=== PATIENT | female | born 1965 | race Caucasian/White ===

== ENCOUNTER → 2020-04-03 09:33 | Outpatient (CLI) | payer MEDICARE, OTHER, SELFPAY ==
[2020-04-06 06:52] LABS: COVID19 Sendout Not Detected (Not Detect)
== END ==
PROVIDERS: Visit Provider Physician Assistant
DX: Z11.59 Encounter for screening for other viral diseases (principal)
CPT/HCPCS: 87635

== ENCOUNTER → 2020-04-03 09:44 | Outpatient (CLI) | payer MEDICARE, OTHER, SELFPAY | PROVIDERS: PCP Physician Assistant; Referring Provider Physician Assistant; Visit Provider Orthopaedic Surgery Orthopaedic Surgery of the Spine | DX: Z01.818 Encounter for other preprocedural examination (principal); Z11.59 Encounter for screening for other viral diseases | CPT/HCPCS: 87635; 93005 ==

== ENCOUNTER 2020-04-07 16:51 | Observation (INO) | payer MEDICARE, OTHER, SELFPAY ==
[2020-03-23 10:54] VITALS: BMI 27.3
[2020-04-02 13:00] VITALS: BMI 26.4
[2020-04-06] VITALS (13 sets, daily range): BP systolic 132–157; BP diastolic 83–106; PULSE 96–105; RESP 10–22; TEMP 36.3–36.9; O2SAT 95–100; BMI 26.4
--- NOTE | 2020-04-06 | DI.RAD.S_ITS ---
PROCEDURE: XR LUMBAR SPINE 2-3V INDICATIONS: L45 TLIF TECHNIQUE: Fluoroscopic images were obtained during an operative procedure and submitted for interpretation following the completion of the procedure. COMPARISON: [facility], , MR LUMBAR SPINE WITHOUT CONTRAST, 07/25/2019, 18:27. [facility], CR, XR LUMBAR SPINE WITH OLBIQUES PLUS FLEXION EXTENSION, 08/22/2019, 12:56. FINDINGS: These fluoroscopic images were performed for intraoperative localization. On these images, postoperative hardware has been placed at the L4-L5 level. Please correlate with intraoperative findings. IMPRESSION: Normal intraoperative examination. Dictated by: Dipesh Alvarenga M.D. on 04/06/2020 at 10:04 Approved by: Dipesh Alvarenga M.D. on 04/06/2020 at 10:05
[2020-04-06] MEDS: LACTATED RINGERS 1,000 ML 42 ML IV ×2 (07:04→10:57)
--- NOTE | 2020-04-06 07:49 | PM.PREOP ---
Pre-operative Note COVID-19 COVID-19 status: Negative Result date/Date tested (Pos, Neg/Pending): 04/04/20 Interval Note History & Physical reviewed/Exam performed by Physician: Yes Changes to H&P: No
[2020-04-06] MEDS: CEFAZOLIN 2 GM/100 ML FROZ.PIGGY IV (07:51)
--- NOTE | 2020-04-06 08:38 | SUR.OPER ---
Prone on spine table, head in foam head support, padded chest and pelvic supports, gel pad at knees, lower legs supported by pillows; nipples, genitalia and toes free of pressure, arms secured on foam padded arm boards at <90 degrees abduction. Tape over blanket at thigh secured to table.
[2020-04-06] MEDS: BUPIVACAINE 0.25% W/ EPI 30 ML VIAL INJ (08:43)
[2020-04-06] MEDS: BUPIVACAINE LIPOSOME 266 MG/20 ML VIAL INJ (08:43)
--- NOTE | 2020-04-06 10:39 | PM.OP.1 ---
Operative Date/Time/Diagnoses Date of procedure: 04/06/20 Time of procedure: 08:09 Pre-op diagnosis: 1. L4-5 Spondylolisthesis 2. L4-5 spinal stenosis 3. Neurogenic claudication Post-op diagnosis: same Procedure & Clinicians Procedure: 1. L4-5 Postero-lateral and posterior interbody fusion 2. L4-5 interbody cage placement. 3. L4-5 decompressive laminectomy with bilateral facetecomies 4. L4-5 Posterior non-segmental instrumentation 5. Reynolds of bone marrow from iliac crest 6. Utilization of microsurgical technique and operating microscope Same procedure as scheduled: Yes Indications: Patient has been having chronic back pain and worsening lumbar radiculopathy and neurogenic claudication. Patient failed multiple conservative management with worsening pain weakness and numbness in her lower extremity. Patient has been having difficulty performing activity of daily living. After discussing risks benefits of treatment options, patient elected proceed with surgery. Surgeon: Miguel Candelario Air Support Operations Operator: Lesly Farah Click Yes if Unassisted: No Anesthesia Type: General Operative Notes Closure Type: primary Specimen(s): none sent Prosthetic devices, grafts, tissues, transplants, or devices: Globus revolve screws, Rise cage Estimated Blood Loss (mL): 50 Blood products transfused: none Procedure in detail: Patient was seen in the preoperative area. Risks and benefits of the surgery was discussed with the patient. Informed consent was obtained from the patient and placed in the chart. Surgical site was marked. Patient was taken to the operative room. General anesthesia was administered. Prophylactic antibiotic was given to the patient less than 30 min before the incision was made. Patient was placed into a prone position on the Anders table. Patient's back was then prepped and draped in the sterile fashion. Time-out was performed at this time. Using AP and lateral C-arm imaging the interval between L4-5 was identified and marked on patient's back. A 2 inch incision 2 in from midline was made on the left side first. The fascia was incised in line with skin incision. Globus MARS retractors was placed inside the incision and docked onto the L4 lamina. Using microsurgical technique and operating microscope, a L4 laminectomy and L4-5 facetectomy was performed using a Kerrison rongeur. There was a large facet cyst at L4-5 facet which was removed during the process of facetectomy. Patient was found have severe central and neural foraminal stenosis which was fully decompressed after the laminectomy and facetectomy was completed. The disc space at L4-5 was identified. And a total diskectomy was performed at L4-5 level. The endplates were decorticated using a rasp and shaver. The total diskectomy and decortication was performed at L4-5 level in order to to accomplish a L4-5 fusion. The local bone from the laminectomy and facetectomy was saved for local bone grafting. After the total diskectomy and decortication was completed, Trifecta bone graft material was combined with local bone that was harvested earlier. At this time, a separate skin is incision was made over the iliac crest. A Jamshidi needle was inserted into the iliac crest through a separate skin incision. 5 cc of bone marrow aspiration was obtained through the separate skin incision using a Jamshidi needle from the iliac crest. The bone marrow aspiration was combined with local bone and the Trifecta bone grafting material. The bone grafting material was placed into the L4-5 interbody space along with a expandable cage. The cage was expanded to its maximum height using the torque limiting screwdriver. At this time a mirror image incision was made on the right side. The fascia was incised in line with the skin incision. Globus MARS retractor was inserted and docked onto the L4-5 posterolateral gutter. Using the power drill, posterior-lateral decortication was performed at L4-5 level until bleeding cortical bone was identified. The remaining bone grafting material was placed into the L4-5 posterior lateral gutter he order to accomplish posterolateral fusion at the L4-5 level. Using the double C-arm technique, pedicle screws were placed into the L4-5 pedicles bilaterally. This was done by placing the Jamshidi needle into the pedicles, then placing the guidewires over the Jamshidi needle, and finally placing the cannulated screws over the guidewires bilaterally. After the pedicle screws were placed, 2 titanium rods was locked into the heads of the pedicle screws using locking caps and torque limiting screwdriver. After all the hardware was placed, and confirmed with AP and lateral C-arm imaging, the wound was then irrigated with sterile normal saline and packed with Ray-Dorene gauze for 3 min to accomplish hemostasis. After the gauze was removed the deep fascia was closed with #1 Vicryl suture. The subcutaneous layer was closed with 2-0 Vicryl. The skin was closed with skin sarita. Patient tolerated the procedure well. There were no complications. Complications: none Post-operative Condition: stable Disposition: PACU Plan for aftercare: Admit to inpatient hospital
--- NOTE | 2020-04-06 11:39 | SUR.PHASEI ---
late entry - Arrived to pacu sleeping, resp unlabored, skin warm and dry. VSS similar to admission. 1056 aroused spontaneously, oriented, denied pain/nausea. ice chips given. Repositioned for comfort. see flow charts. Report called to RACHAEL Varner.
[2020-04-06] MEDS: SODIUM CHLORIDE 0.9% 1,000 ML 100 ML IV ×2 (11:40→21:59)
--- NOTE | 2020-04-06 11:41 | SUR.PHASEI ---
1119 to room 219, bed down and locked, call light within reach. Pt oriented/drowsy and appropriate. Clothing and wheelchair taken to the room. Dressing remains CDI, continues to deny pain/nausea. SCDs on; VSS. No questions/concerns from pt or staff.
[2020-04-06] MEDS: OXYCODONE IR 5 MG TABLET 10 MG PO ×4 (11:42→23:11)
--- NOTE | 2020-04-06 11:49 | PC.NURSE ---
Day shift: Pt on unit at approx 1130 from PACU. She reports being tired and she also reported pain in back 01/30. Medicated for pain per SEP at approx 1145. She is tolerating Ice water. She did not want a cracker. Has wanted the HOB adjusted several times. Oriented to room and call light. BP elevated and per AUTOMATIC STACKER aware. Will continue to monitor BP. On cont. O2 monitor w/ sat of 100% RA. Tolerating SCD's. Call light in reach. Dressing over op-jesus on her lower back is CDI.
[2020-04-06] MEDS: HYDROMORPHONE 0.5 MG INJ 0.2 MG IV (12:22)
[2020-04-06] MEDS: hydrOXYzine pamoate 25 MG CAPSULE PO (12:29)
[2020-04-06] MEDS: GABAPENTIN 300 MG CAPSULE PO ×2 (14:04→20:09)
[2020-04-06] MEDS: BACLOFEN 10 MG TABLET 20 MG PO ×2 (14:04→20:09)
[2020-04-06] MEDS: NORTRIPTYLINE HCL 25 MG CAPSULE PO ×2 (14:06→20:09)
--- NOTE | 2020-04-06 15:02 | PT.IIE ---
Current Diagnoses Spondylolisthesis, lumbar region (04/06/20) Spinal stenosis, lumbar region with neurogenic claudication (04/06/20) Surgery Performed Operation Date: 04/06/20 07:45 Actual Procedures p L4-5 TLIF - Miguel Candelario MD Surgical History (Last Updated 04/02/20 @ 13:19 by Clarita Tabor, RN) History of hysterectomy (Acute) Medical History (Last Updated 04/02/20 @ 13:22 by Clarita Tabor RN) Anxiety (Acute) Depression (Acute) HTN (hypertension) (Acute) Memory problem (Acute) Multiple sclerosis (Acute 1988) Neuropathy (Acute) Physical Therapy Inpatient Evaluation/Re-Eval M1 PT/OT-IP Prior Functional Status Start: 04/06/20 13:39 Freq: NEEDED Status: Active Protocol: Document 04/06/20 14:32 HH (Rec: 04/06/20 15:02 [id number]) Medical Review Prior Functional Status Medical History Reviewed Yes Diet/Fluid Consistency Regular Communication able to make needs known. Pt and stated pt has difficulty with short term memory d/t MS. Mobility and Gait 4WW at all times. Uses transport w/c sometimes for long distance. Activities of Daily Living and IADL's independent for ADLs with 4WW. She is able to drive but can help for doctors appt sometimes. Social History Household Members spouse,children Living Arrangements House Number of Floors (Floors) Two Floors Number of Stairs To Enter/Railing? with ramp entrance pt stays on mainfloor with bathroom access. Home Environment Standard Height Toilet,Walk in Shower Home Equipment Four Wheel Walker,Power Wheelchair/Scooter,Hand Held Shower,Grab Bars In Shower Employment Status Unemployed Additional Social History Comment Pt lives with his Heri and a 19 yo son in [facility]. stated him and his son will be able to assist as needed. M2 PT-IP Current Condition Start: 04/06/20 13:39 Freq: NEEDED Status: Active Protocol: Document 04/06/20 14:32 HH (Rec: 04/06/20 15:02 [id number]) Physical Therapy Current Condition Current Condition Evaluation Date 04/06/20 Treatment Diagnosis L4-L5 TLIF, difficulty in walking Onset Date 04/06/20 Precautions Lumbar Precautions Log Roll,No Twisting,Limit Bending,Lifting Restriction of 10 lbs,Gait Belt above Incisional Area Weight Bearing Status Weight Bearing Status Weight Bear as Tolerated M3 PT-IP Subjective Start: 04/06/20 13:39 Freq: NEEDED Status: Active Protocol: Document 04/06/20 14:32 (Rec: 04/06/20 15:02 [id number]) Subjective Physical Therapy Visit Type Type Initial Evaluation Visit Start Time 14:12 Visit Stop Time 14:36 Total Visit Minutes 24 Notes Heri at bedside. 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 Patient Goals to return home with family Therapy Pain Assessment Pain When Pain Assessed During Mobility Pain Present Pain Present Pain Reported Location Back Intensity 4 Scale Used Numeric (0 - 10) Description Aching Pain Behaviors Facial Grimacing Pain Management Techniques Timing of Activity with Medications M4 PT-IP Mobility and Gait Start: 04/06/20 13:39 Freq: NEEDED Status: Active Protocol: Document 04/06/20 14:32 (Rec: 04/06/20 15:02 [id number]) PT-Bed Mobility Assessment Rolling Type of Rolling Log Rolling,Roll to Right Level of Assist Minimal Assistance,1 Person Assistance Supine to Sit Supine to Sit Moderate Assistance,1 Person Assistance,Head of Bed Elevated Scooting Scooting to Edge of Bed Contact Guard Assistance PT-Transfer Assessment Sit to and From Stand Sit to and from Stand Minimal Assistance,Use of Upper Extremities Equipment Transfer Assistive Device Gait Belt,Front Wheeled Walker Transfers Transfer Destination Bed,Chair Transfer Technique Stand Step Pivot Transfer Ability Level of Assist Moderate Assistance,1 Person Assistance,Use of Upper Extremities Comments Mobility Comments Pt was in bed upon PT arrival. AxO x 3 but needed assistance from to answer questions about home situation d/t her poor short term memory from MS. Educated pt regarding postop precautions. BP in supine = 133/80 and she agreed to mobilize with PT. She reports pain at surgical site and some radiating pain L lateral hip. She initially has difficulty rolling to R with min A needed, followed by mod A x 1p from SL to sit. Pt is somewhat fridgety and needed 1 step command for instruction. She was able to scoot to EOB after but reports slight dizziness. BP at 158/ 111. Pt then stood up with min A and she stood for about 20 seconds then requested to sit down d/t weakness. She then stood up after with better performance with CGA/ min A. Pt then did side stepping to R side but needed mod A on walker management and step management since pt was somewhat anxious. Pt then slowly descend to chair with chair armrests and mod A. Positioned pt into reclined position for comfort. BP at 137/81. pain at 4/10 . Call light placed within reach. Pt was not able to recall precautions after and post op bronchue was given. Gait Assessment Comments Gait Comments did not assess d/t weakness. Stair Climbing Assessment Comments Stair Climbing Comments pt has a ramp at home PT-Balance Assessment Sitting Balance and Reactions Static Sitting Balance Ability Normal Dynamic Sitting Balance Ability Good Standing Balance and Reactions Static Standing Balance Ability Good Dynamic Standing Balance Ability Fair Device Used FWW M5 PT-IP Objective Assessments Start: 04/06/20 13:39 Freq: NEEDED Status: Active Protocol: Document 04/06/20 14:32 (Rec: 04/06/20 15:02 [id number]) Orientation Orientation/Cognition Level of Alertness Alert Orientation Name,Age,Birthday,Month,Date, Year,Day of Week,Place, Situation Language Function Ability No Deficits Noted Safety Awareness Decreased Safety Awareness Memory Description Short Term Impaired Gross Range of Motion Upper Extremity ROM Assessment Within Functional Limits Lower Extremity ROM Assessment Within Functional Limits Strength Upper Extremity Strength Assessment Left Impaired Shoulder 4-/5 Elbow 4-/5 Wrist 4-/5 Hand 4-/5 Lower Extremity Strength Hip 4-/5 Knee 4-/5 Sensation Assessment Sensation Gross Sensation WNL Light Touch Intact Proprioception (Position) Intact M6 PT-IP Treatment Start: 04/06/20 13:39 Freq: NEEDED Status: Active Protocol: Document 04/06/20 14:32 (Rec: 04/06/20 15:02 [id number]) Physical Therapy Treatment Exercises Exercises Ankle Pumps,Gluteal Sets Education Education Provided Precautions,Weight Bearing Status,Post-Op Packet,Safety M7 PT-IP Assessment and Plan Start: 04/06/20 13:39 Freq: NEEDED Status: Active Protocol: Document 04/06/20 14:32 (Rec: 04/06/20 15:02 [id number]) PT Summary Assessment and Plan Potential Rehabilitation Potential Good Status of Condition at Evaluation Evolving Summary Impairments Pain,ROM,Strength,Balance,Bed Mobility,Transfers,Gait, Activity Tolerance Assessment Summary This is a low complexity evalution for this 54 yo female s/p L4-L5 TLIF this morning by . Pt stated she has MS and uses 4WW at baseline, along with poor short term memory. Upon assessment, pt appears to be quite nervous and anxious who was fridgety during mobility. She needed 1 step command for instruction with min to mod A for bed to chair transfer. She was not able to recall post op precautions but fortunately her Heri was there for the whole session. Expect pt to close to baseline soon and be d/c home with and son assistance as needed or possible home health (depends on progress) once she is medically stable Goals Bed Mobility Goal Contact Guard Assistance Transfer Goal Contact Guard Assistance,Front Wheeled Walker,Four Wheeled Walker Gait Goal Contact Guard Assistance,Front Wheel Walker,Four Wheel Walker Gait Distance 100 Other Goals FWW/ 4WW for mobility Days to Meet Goals 3 Frequency of Treatment Frequency Of Treatment Twice a Day Treatment Plan Physical Therapy Treatment Plan Bed Mobility Training,Transfer Training,Gait Training, Therapeutic Exercise,Balance Retraining,Post Op Education, Discharge Planning,Hot or Cold Pack,Neuromuscular Re-ed Other Recommendations and Next Treatment check vitals Focus review precautions, log roll FWW/ 4WW for mobility Recommendations To Nursing Amount of Assist Needed 1 Person Assist Discharge Recommendations PT Discharge Recommendations Home with Assistance,Home Health Equipment Needed for Home Before FWW if pt not safe for 4WW Discharge Transportation Needs at Discharge Private Vehicle
[2020-04-06] MEDS: CEFAZOLIN 1 GM/50 ML FROZ.PIGGY IV ×2 (16:01→23:47)
[2020-04-06] MEDS: DOCUSATE 100 MG CAPSULE PO (20:09)
[2020-04-06] MEDS: SENNOSIDES 8.6 MG TABLET 17.2 MG PO (20:09)
[2020-04-07] MEDS: OXYCODONE IR 5 MG TABLET 10 MG PO ×5 (02:53→21:45)
[2020-04-07 03:00] VITALS: BP 138/75; PULSE 104; RESP 18; TEMP 37.1; O2SAT 99
--- NOTE | 2020-04-07 07:27 | PM.PNPO.1 ---
Subjective Subjective Date Patient Seen: 04/07/20 Time Patient Seen: 07:27 Interval history: POD #1 s/p TLIF with Dr. Candelario. Her pain has been well controlled with Oxycodone and Vistaril. She does have MS and this may contribute to a slower recovery. She has not mobilized with PT yet. She is voiding without difficulty. Exam Vital Signs (past 8 hours): - 04/07/20 03:00 Temperature 98.8 F Pulse Rate 104 H Respiratory Rate 18 Blood Pressure 138/75 Pulse Oximetry 99 Oxygen Delivery Method Room Air Oxygen Flow Rate 0 Narrative Exam Narrative: Patient lying in bed in NAD. She is alert and oriented X3. Calves are soft, compressible, and nontender bilaterally. She is able to dorsiflex and plantarflex. SILT in BLE. DP pulses symmetrical. Assessment & Plan Post-op Postoperative Procedures: Procedures Operation Date: 04/06/20 07:45 Actual Procedures Side Surgeon p L4-5 TLIF Miguel Candelario MD Patient will mobilize with PT today. No excessive bending, lifting, or twisting. Continue current pain control. Patient will mobilize with PT. If they are slow to mobilize they will discharge in next 2-3 days. Quality VTE Deep Vein Thrombosis/Pulmonary Embolism Present on Admission: No
[2020-04-07 08:03] VITALS: BP 126/75; PULSE 91; RESP 18; TEMP 36.2; O2SAT 99
[2020-04-07] MEDS: NORTRIPTYLINE HCL 25 MG CAPSULE PO ×3 (08:56→21:46)
[2020-04-07] MEDS: PRAMIPEXOLE 0.125 MG TABLET PO (08:56)
[2020-04-07] MEDS: BACLOFEN 10 MG TABLET 20 MG PO ×3 (09:03→21:49)
[2020-04-07] MEDS: lisinopriL 20 MG TABLET PO (09:03)
[2020-04-07] MEDS: SERTRALINE 50 MG TABLET 150 MG PO (09:03)
[2020-04-07] MEDS: GABAPENTIN 300 MG CAPSULE PO ×3 (09:04→21:46)
[2020-04-07] MEDS: DOCUSATE 100 MG CAPSULE PO ×2 (09:04→21:46)
--- NOTE | 2020-04-07 09:56 | PT.IPTN ---
Current Diagnoses Spondylolisthesis, lumbar region (04/06/20) Spinal stenosis, lumbar region with neurogenic claudication (04/06/20) Surgery Performed Operation Date: 04/06/20 07:45 Actual Procedures p L4-5 TLIF - Miguel Candelario MD Physical Therapy Treatment Note M2 PT-IP Current Condition Start: 04/06/20 13:39 Freq: NEEDED Status: Active Protocol: Document 04/06/20 14:32 HH (Rec: 04/06/20 15:02 HH [id number]) Physical Therapy Current Condition Current Condition Evaluation Date 04/06/20 Treatment Diagnosis L4-L5 TLIF, difficulty in walking Onset Date 04/06/20 Precautions Lumbar Precautions Log Roll,No Twisting,Limit Bending,Lifting Restriction of 10 lbs,Gait Belt above Incisional Area Weight Bearing Status Weight Bearing Status Weight Bear as Tolerated M3 PT-IP Subjective Start: 04/06/20 13:39 Freq: NEEDED Status: Active Protocol: Document 04/07/20 09:56 CLB (Rec: 04/07/20 11:13 CLB [id number]) Subjective Physical Therapy Visit Type Type Treatment Note Visit Start Time 09:56 Visit Stop Time 10:19 Total Visit Minutes 23 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 Therapy Pain Assessment Pain When Pain Assessed During Mobility Pain Present Pain Present Pain Reported Location Back Intensity 5 Scale Used Numeric (0 - 10) Pain Behaviors Facial Grimacing Pain Management Techniques Timing of Activity with Medications M4 PT-IP Mobility and Gait Start: 04/06/20 13:39 Freq: NEEDED Status: Active Protocol: Document 04/07/20 09:56 CLB (Rec: 04/07/20 11:13 CLB [id number]) PT-Transfer Assessment Sit to and From Stand Sit to and from Stand Minimal Assistance,Use of Upper Extremities Equipment Transfer Assistive Device Gait Belt,Front Wheeled Walker ,4 Wheeled Walker Transfers Transfer Destination Chair Transfer Technique Stand Step Pivot Transfer Ability Level of Assist Minimal Assistance,Use of Upper Extremities Comments Mobility Comments Pt in chair upon arrival. Pt stood with cues for hand placement and requiring Min A, once pt was in standing with bilateral hands of walker pt required CGA for standing balance. Pt ambulated ~10ft with 4WW with increased pain, 4WW was replaced with FWW with decreased pain during use. Pt required cues to stay inside walker and cues for hayden as pt ambulates too quickly and lets walker get to far ahead of her. Pt returned to chair due to LE weakness and fatigue requiring cues to reach back for arms of chair to slow descent and decrease pain. Pt then stood requiring Min A and CGA for standing balance as RN removed and place new bandage on low back incision. Pt returned to sitting and was left in chair reclined with all needs within reach. Pt to be here this afternoon for CG training. Pt will need FWW and d/c. Gait Assessment Gait Gait Assistance Required: Contact Guard Assist,1 Person Assist Distance (Feet) 25 Able to Maintain Weight Bearing Status Yes During Gait Assistive Devices Assistive Device Gait Belt,Front Wheeled Walker ,4 Wheeled Walker Orthotic/Prosthetic Devices or Brace: No Gait Deviations General Gait Pattern Antalgic,Decreased Stride Length,Decreased Feet Clearance,Flexed Trunk,Narrow Based Gait Factors Limiting Gait Function Factors Limiting Gait Function Decreased Activity Tolerance, Decreased Strength,Difficulty Following Directions,Limited Range of Motion,Pain,Poor Balance,Poor Safety Awareness Comments Gait Comments Pt requiring CGA during ambulation with max cuing for walker management. Pt requiring cues for posture and hayden. Stair Climbing Assessment Comments Stair Climbing Comments pt has a ramp at home M5 PT-IP Objective Assessments Start: 04/06/20 13:39 Freq: NEEDED Status: Active Protocol: Document 04/06/20 14:32 (Rec: 04/06/20 15:02 [id number]) Orientation Orientation/Cognition Level of Alertness Alert Orientation Name,Age,Birthday,Month,Date, Year,Day of Week,Place, Situation Language Function Ability No Deficits Noted Safety Awareness Decreased Safety Awareness Memory Description Short Term Impaired Gross Range of Motion Upper Extremity ROM Assessment Within Functional Limits Lower Extremity ROM Assessment Within Functional Limits Strength Upper Extremity Strength Assessment Left Impaired Shoulder 4-/5 Elbow 4-/5 Wrist 4-/5 Hand 4-/5 Lower Extremity Strength Hip 4-/5 Knee 4-/5 Sensation Assessment Sensation Gross Sensation WNL Light Touch Intact Proprioception (Position) Intact M6 PT-IP Treatment Start: 04/06/20 13:39 Freq: NEEDED Status: Active Protocol: Document 04/06/20 14:32 (Rec: 04/06/20 15:02 [id number]) Physical Therapy Treatment Exercises Exercises Ankle Pumps,Gluteal Sets Education Education Provided Precautions,Weight Bearing Status,Post-Op Packet,Safety M7 PT-IP Assessment and Plan Start: 04/06/20 13:39 Freq: NEEDED Status: Active Protocol: Document 04/07/20 09:56 CLB (Rec: 04/07/20 11:13 CLB [id number]) PT Summary Assessment and Plan Summary Impairments Pain,ROM,Strength,Balance,Bed Mobility,Transfers,Gait, Activity Tolerance Assessment Summary Pt has decreased activity tolerance and was able to ambulate ~25ft with CGA and max cues for walker management . Pt requiring Min A for sit- stand. Pt's will be in this afternoon for CG training. Pt will require FWW at d/c. Goals Bed Mobility Goal Contact Guard Assistance Transfer Goal Contact Guard Assistance,Front Wheeled Walker,Four Wheeled Walker Gait Goal Contact Guard Assistance,Front Wheel Walker,Four Wheel Walker Gait Distance 100 Other Goals FWW/ 4WW for mobility Days to Meet Goals 3 Frequency of Treatment Frequency Of Treatment Twice a Day Treatment Plan Physical Therapy Treatment Plan Bed Mobility Training,Transfer Training,Gait Training, Therapeutic Exercise,Balance Retraining,Post Op Education, Discharge Planning,Hot or Cold Pack,Neuromuscular Re-ed Other Recommendations and Next Treatment precautions, bed mobility, CG Focus training with . Recommendations To Nursing Amount of Assist Needed 1 Person Assist Discharge Recommendations PT Discharge Recommendations Home with Assistance,Home Health Equipment Needed for Home Before FWW Discharge Transportation Needs at Discharge Private Vehicle
[2020-04-07 10:56] VITALS: BP 106/68; PULSE 108; RESP 16; TEMP 36.5; O2SAT 100
--- NOTE | 2020-04-07 11:24 | CM.DANOTE ---
DCP/Assessment: Reviewed chart. Patient is a 54yr old female admitted [facility] on 04-06-[address] Candelario. PCP is JOSSELIN Bassett. Primary payor is 1)Medicare 2)[facility]. Met with patient explained CM/SW role. Patient reports that she hopes to d/c home later today. Patient reports that she has needed support and DME. P: Home when stable. DELFIN Colin Discharge Planning/Care Management CM Discharge Assessment Start: 04/07/20 11:22 Freq: Status: Active Protocol: Document 04/07/20 11:23 KJS (Rec: 04/07/20 11:24 KJS [id number]) Discharge Planning Assessment Assigned Warehouse Delivery Manager DELFIN Colin Contact Information Heri Blank (spouse) [phone] Advance Directives? No History Provided By Patient,Medical Record Prior Living Arrangements House Household Members spouse,children Type of transporation used prior to Drives own vehicle admit Independent with ADL's Yes Is patient alert and oriented? Yes Caregiver for Another No DME Already Rented / Owned FWW / Walker Barriers to Discharge No Discharge Plan Home Transportation Arrangement Family to provide transport when stable. Whiteboard Updated in Patient Room with Yes name and ext. # of Warehouse Delivery Manager Review Status In Process Next Review Type Continued Stay Review Pre-Anesthesia Assessment Start: 03/23/20 10:54 Freq: Status: Complete Protocol: Document 03/23/20 10:54 CAB (Rec: 03/23/20 12:10 CAB [id number]) Pre-Anesthesia Assessment PAC Comment Phone call was disconnected and three attempts to call patient back were unsuccessful . Message x 2 left. Patient Information Reviewed Via Phone Assessment Assessment Completed With Patient Comment COVID screen not identified, no pre-op labs available Primary Care Provider Jesi Davis Seen Specialist in Last 12 Months Yes Specialist Seen Orthopedist Primary Language Sami Wage Conciliator Required No Height 154.94 cm Weight 65.771 kg Body Mass Index (BMI) 27.3 Patient is completely paralyzed or No completely immobile Mental Status Oriented to own ability Comment Hx of MS Patient No Lactating No Have you had any close contact with Unknown someone diagnosed with COVID-19? Marital Status Lives With spouse Document 04/02/20 13:00 CAB (Rec: 04/02/20 13:00 CAB [id number]) Pre-Anesthesia Assessment PAC Comment Multiple attempts to get ahold of pt for two scheduled PAC phone assessments. Pt appears to be easily confused and unable to provide information without asking . She states she has memory issues related to MS Patient Information Reviewed Via Phone Assessment Assessment Completed With Patient Comment COVID screen not identified, no pre-op labs available Primary Care Provider Jesi Davis Seen Specialist in Last 12 Months Yes Specialist Seen Orthopedist Primary Language Sami Wage Conciliator Required No Height 154.94 cm Weight 63.503 kg Body Mass Index (BMI) 26.4 Hearing Ability Normal Visual Assist Glasses Dentition Type Teeth, Natural Present Barriers to Learning Memory Hx Anesthesia Reactions No Hx Family Anesthesia Reaction No Hx Malignant Hyperthermia No Hx Blood Transfusions No Anesthesia Review Requested No Time Clock Mechanic No alcohol intake former Alcohol Intake Frequency Other: Stopped years ago Smoking Status Former smoker Tobacco type cigarettes how long ago did patient quit smoking Quit 1989 Substance Use Type marijuana Comment Advised not to smoke marijuana 24 hours prior to surgery Pain Present Pain Reported Musculoskeletal Symptoms Abnormal Gait,Back Pain, Difficulty Walking,Numbness History of Falling (Recent or History of Yes ) Patient is completely paralyzed or No completely immobile Prosthesis or Orthotic Device Front Wheel Walker Gait/Transferring Impaired Mental Status Oriented to own ability Comment Hx of MS Is patient on oxygen? No Does patient have RENNER/SOB No Hx Sleep Apnea No Currently Taking a Beta Sarmad No Hx Chest Pain No Hx SOB No Hx Syncope or Dizziness No Anti-Coagulant Therapy No Has a Embedded Systems Developer No Cardiac Testing No Hx Pacemaker/ICD No Pacemaker Rep Required? No Diet Type At Home Regular dysphagia No Urinary Catheter Present No Hx Urinary Self Catheterization No Diabetes No Patient No Lactating No Hx Drug Resistant Organism No Presence of External or Internal Medical No Devices Have you had any close contact with No someone diagnosed with COVID-19? Marital Status Lives With spouse,children Prior Living Arrangements House Number of Floors (Floors) 3 or More Floors Support System Child/Children,Spouse Does the Patient Have Assistance After Yes Surgery Patient Discharge Plan Description Return Home Comment Pt not advised on length of stay per surgeon Feels Safe in Current Environment Yes Been Physically Hurt or Threatened By a No Person in Current Environment Do you have thoughts of harming yourself None or others? Are you currently considering suicide? No Do you have a plan to hurt yourself or No Plan others? Do You Have Any Spiritual Beliefs That No May Affect Your HC Choices? Do You Have Any Cultural Practices That No May Affect Your HC Choices? Comment Anabaptism Who Can We Speak to About Patient's Care Family, friends Identifying Code for Release of Patient Declines to issue Information Health Care Proxy/Next of Kin Anselmo () Health Care Proxy Emergency Contact Name Anselmo () Emergency Contact Advance Directives? No Power of Seat Scooper Machine No PAC Instructions Durable medical equipment, Medications to take/avoid, Nasal antibiotic,No ETOH/ petroleum product on skin DOS, NPO,Post-op transportation, Sturdy shoes/comfortable clothes,Do not bring valuables and remove jewelry
--- NOTE | 2020-04-07 11:51 | OT.IP.EVAL ---
Current Diagnoses Spondylolisthesis, lumbar region (04/06/20) Spinal stenosis, lumbar region with neurogenic claudication (04/06/20) Surgery Performed Operation Date: 04/06/20 07:45 Actual Procedures p L4-5 TLIF - Miguel Candelario MD Past Medical History (Last Updated 04/02/20 @ 13:22 by Clarita Tabor, RN) Anxiety (Acute) Depression (Acute) HTN (hypertension) (Acute) Memory problem (Acute) Multiple sclerosis (Acute 1987) Neuropathy (Acute) Surgical History (Last Updated 04/02/20 @ 13:19 by Clarita Tabor, RN) History of hysterectomy (Acute) Occupational Therapy Inpatient Evaluation/Re-Eval M1 PT/OT-IP Prior Functional Status Start: 04/07/20 13:41 Freq: NEEDED Status: Active Protocol: Document 04/07/20 11:11 [facility] (Rec: 04/07/20 14:00 [facility] [id number]) Medical Review Prior Functional Status Medical History Reviewed Yes Diet/Fluid Consistency Regular Communication able to make needs known. Pt and stated pt has difficulty with short term memory d/t MS. Mobility and Gait 4WW at all times. Uses transport w/c sometimes for long distance. Activities of Daily Living and IADL's independent for ADLs with 4WW. She is able to drive but can help for doctors appt sometimes. Social History Household Members spouse,children Living Arrangements House Number of Floors (Floors) Two Floors Number of Stairs To Enter/Railing? with ramp entrance pt stays on the main floor with bathroom access. Home Environment Standard Height Toilet,Walk in Shower Home Equipment Four Wheel Walker,Power Wheelchair/Scooter,Hand Held Shower,Grab Bars In Shower Additional Social History Comment Pt lives with his Heri and a 19 yo son in [place]. stated him and his son will be able to assist as needed. M2 OT-IP Current Condition Start: 04/07/20 13:41 Freq: Status: Active Protocol: Document 04/07/20 11:11 [facility] (Rec: 04/07/20 14:00 [facility] [id number]) Occupational Therapy Current Condition Current Condition Evaluation Date 04/07/20 Treatment Diagnosis Spinal Stenosis s/p L4-5 TLIF Diagnosis Onset Date 04/06/20 Post Operative Precautions Lumbar Precautions Log Roll,No Twisting,Limit Bending,Lifting Restriction of 10 lbs,Gait Belt above Incisional Area M3 OT- IP Subjective and Pain Start: 04/07/20 13:41 Freq: Status: Active Protocol: Document 04/07/20 11:11 [facility] (Rec: 04/07/20 14:00 [facility] [id number]) OT- Subjective Occupational Therapy Visit Type Type Initial Evaluation Visit Start Time 11:11 Visit Stop Time 11:51 Total Visit Minutes 40 Occupational Therapy Visit Comments Patient Comments Pt agreed tp get up for OT eval. Patient/Caregiver Goals TO go home. OT Pain Assessment Pain When Pain Assessed At Rest Pain Present Pain Present Denied Pain M4 OT- IP ADL's Start: 04/07/20 13:41 Freq: Status: Active Protocol: Document 04/07/20 11:11 [facility] (Rec: 04/07/20 14:00 [facility] [id number]) OT TFT-Xoyz-Ugaeizy Comments OT Self-Feeding Comments Not at meal time. OT ADL-Grooming Comments OT Grooming Comments Pt states already put her dentures in. Educated if rinsing her mouth to best spit into a cup to best follow her back precautions. OT ADL-Dressing General Eval Lower Body Dressing Ability Minimal Assistance Areas Needing Assistance Underpants/Brief Comments OT Dressing Comments Assist to help get brief over her feet. Pt a bit forgetful and trying to bend over to get her brief on and needing vc to stop. Showed pt public speaking coach but at this time pt's to assist as will have to assist pt at all times due to her decreased safety awareness due to decreased short term memory. OT ADL-Toileting General Evaluation Toileting Ability Standby Assistance Comments OT Toileting Comments Educated best for pt to stand and wipe and have there to assist if needed. OT ADL-Bathing Comments OT Bathing Comments Not performed. M5 OT- IP IADL's Start: 04/07/20 13:41 Freq: Status: Active Protocol: Document 04/07/20 11:11 [facility] (Rec: 04/07/20 14:00 [facility] [id number]) OT-Instrumental Activities of Daily Living Home Safety Awareness Ability to Problem Solve Emergency Unable to Problem Solve Situations Medication Management Medication Management Caregiver Administers Money Management Money Management Caregiver Provides Assistance Meal Preparation Meal Preparation Caregiver Provides Assist Wood Carver Wood Carver Caregiver Provides Assist M6 OT- IP Functional Cognition Start: 04/07/20 13:41 Freq: Status: Active Protocol: Document 04/07/20 11:11 [facility] (Rec: 04/07/20 14:00 [facility] [id number]) Cognitive Factors Limiting Selfcare Function Cognitive Ability Level of Alertness Alert Patient Orientation Name,Place,Situation Attention Span Ability Capable of Focused Attention, Capable of Sustained Attention Ability to Follow Commands Able to Follow One Step Commands with Increased Time, Able to Follow One Step Commands with Repetition Memory Description Short Term Impaired Safety Awareness Decreased Recall of Precautions,Decreased Ability to Apply Precautions, Underestimates Need for Assistance Problem Solving Ability Needs Assist to Identify Solutions Cognitive Comments Cognitive Assessment Comments Pt needing step by step commands to follow back precautions, have the FWW in front of her, and slow down. Pt is impulsive and not remembering her back precautions. Pt's educated to remind her often. M7 OT- IP Mobility and Balance Start: 04/07/20 13:41 Freq: Status: Active Protocol: Document 04/07/20 11:11 [facility] (Rec: 04/07/20 14:00 [facility] [id number]) OT- Bed Mobility Assessment Supine to Sit Supine to Sit Assist Moderate Assistance Sit to Supine Sit to Supine Assist Moderate Assistance OT-Transfer Assessment Sit to and From Stand Sit to and from Stand Moderate Assistance Transfers Transfer Ability Minimal Assistance,Moderate Assistance Technique Transfer Destination Bed,Chair,Toilet Devices Transfer Assistive Devices Gait Belt,Front Wheeled Walker Comments Mobility Comments Able to train her for bed mobility and will continue to benefit from more practice. Pt's able to sulema gait belt and assist to stand from [place]EPH[place] to MOD A to FWW. Pt 's needing cues for proper body mechanics and hand placement for gait belt when assisting the pt. OT- Balance Assessment Sitting Balance and Reactions Static Sitting Balance Ability Normal Dynamic Sitting Balance Ability Good Standing Balance and Reactions Static Standing Balance Ability Fair M9 OT- IP Assessment and Plan Start: 04/07/20 13:41 Freq: Status: Active Protocol: Document 04/07/20 11:11 [facility] (Rec: 04/07/20 14:00 [facility] [id number]) OT Summary Assessment and Plan Potential Rehabilitation Potential Good Analytic Complexity at Evaluation Low Summary OT Impairments Balance,Functional Cognition, Functional Mobility,Dressing, Toileting,Bathing,Toilet Transfers,Shower Transfers, Activity Tolerance Progress Towards Goals Progressing Toward Goals Assessment Summary Pt low complexity and main barriers are decreased safety awareness and not needing one person assist for all mobility and self care needs. Pt's present and initiated caregiver training for bed mobility , transfers, and ADl needs. Pt and to benefit from more traiing tomorrow. Pt would benefit from a BSC at home. Goals Grooming Goal Independent Dressing Goal Independent Toileting Goal Independent Bathing Goal Independent Toilet Transfer Goal Independent Shower Transfer Goal Independent Patient/Caregiver Education Goal Demonstrate Post-Op Precautions,Caregiver Independent Assisting Patient Days to Meet Goals 10 Frequency of Treatment Frequency Of Treatment Once a Day Treatment Plan OT Treatment Plan ADL Training,Functional Cognition Training,Functional Mobility,Patient/Family Education,Discharge Planning Other Treatment Recommendations and Next caregiver training Treatment Focus Discharge Recommendations OT Discharge Recommendations Home with 24/7 Assist Other Discharge Recommendations Assist during waking hours. Home Equipment Needs BSC Transportation Needs at Discharge Private Vehicle
--- NOTE | 2020-04-07 13:47 | PT.IPTN ---
Current Diagnoses Spondylolisthesis, lumbar region (04/06/20) Spinal stenosis, lumbar region with neurogenic claudication (04/06/20) Surgery Performed Operation Date: 04/06/20 07:45 Actual Procedures p L4-5 TLIF - Miguel Candelario MD Physical Therapy Treatment Note M2 PT-IP Current Condition Start: 04/06/20 13:39 Freq: NEEDED Status: Active Protocol: Document 04/06/20 14:32 HH (Rec: 04/06/20 15:02 HH [id number]) Physical Therapy Current Condition Current Condition Evaluation Date 04/06/20 Treatment Diagnosis L4-L5 TLIF, difficulty in walking Onset Date 04/06/20 Precautions Lumbar Precautions Log Roll,No Twisting,Limit Bending,Lifting Restriction of 10 lbs,Gait Belt above Incisional Area Weight Bearing Status Weight Bearing Status Weight Bear as Tolerated M3 PT-IP Subjective Start: 04/06/20 13:39 Freq: NEEDED Status: Active Protocol: Document 04/07/20 13:17 [facility]B (Rec: 04/07/20 14:13 CLB [id number]) Subjective Physical Therapy Visit Type Type Treatment Note Visit Start Time 13:27 Visit Stop Time 13:47 Total Visit Minutes 20 Notes present Number of [employer]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 Therapy Pain Assessment Pain When Pain Assessed During Mobility Pain Present Pain Present Pain Reported Location Back Intensity 3 Scale Used Numeric (0 - 10) Pain Behaviors Facial Grimacing,Guarding, Holding Area,Restlessness, Wincing Pain Management Techniques Timing of Activity with Medications M4 PT-IP Mobility and Gait Start: 04/06/20 13:39 Freq: NEEDED Status: Active Protocol: Document 04/07/20 13:17 [facility]B (Rec: 04/07/20 14:13 CLB [id number]) PT-Bed Mobility Assessment Rolling Type of Rolling Log Rolling,Roll to Right Supine to Sit Supine to Sit Minimal Assistance,1 Person Assistance Sit to Supine Sit to Supine Moderate Assistance,1 Person Assistance Scooting Scooting to Edge of Bed Contact Guard Assistance PT-Transfer Assessment Sit to and From Stand Sit to and from Stand Minimal Assistance,Use of Upper Extremities Equipment Transfer Assistive Device Gait Belt,Front Wheeled Walker Orthotic/Prosthetic Devices or Brace: No Transfers Transfer Destination Bed Transfer Technique Stand Step Pivot Transfer Ability Level of Assist Minimal Assistance,Use of Upper Extremities Comments Mobility Comments Pt in bed and agreeable to get out of bed to ambulate. Pt requiring step by step instructions and cues for sequencing LR and Min A supine to sit. Pt was able to scoot to EOB CGA. Pt stood requiring Min A. Pt ambulated ~25ft CGA with max cues for posture and staying inside walker. Pt requiring cues for sequencing stand pivot with walker management until safely in front of bed. Pt sat CGA then required Mod A for reverse LR and assist with LE's onto bed and cues for keeping back from twisting. Pt with increased pain in supine was left in bed in sidelying on right side with pillow between legs and one behind pt. present and all needs within reach. Gait Assessment Gait Gait Assistance Required: Contact Guard Assist,1 Person Assist Distance (Feet) 25 Able to Maintain Weight Bearing Status Yes During Gait Assistive Devices Assistive Device Gait Belt,Front Wheeled Walker Gait Deviations General Gait Pattern Antalgic,Decreased Stride Length,Decreased Feet Clearance,Flexed Trunk,Narrow Based Gait Factors Limiting Gait Function Factors Limiting Gait Function Decreased Activity Tolerance, Decreased Strength,Difficulty Following Directions,Limited Range of Motion,Pain,Poor Balance,Poor Safety Awareness Comments Gait Comments Due to pain in right buttocks and upper thigh pt unable to increase gait distance. Stair Climbing Assessment Comments Stair Climbing Comments pt has a ramp at home M5 PT-IP Objective Assessments Start: 04/06/20 13:39 Freq: NEEDED Status: Active Protocol: Document 04/06/20 14:32 (Rec: 04/06/20 15:02 [id number]) Orientation Orientation/Cognition Level of Alertness Alert Orientation Name,Age,Birthday,Month,Date, Year,Day of Week,Place, Situation Language Function Ability No Deficits Noted Safety Awareness Decreased Safety Awareness Memory Description Short Term Impaired Gross Range of Motion Upper Extremity ROM Assessment Within Functional Limits Lower Extremity ROM Assessment Within Functional Limits Strength Upper Extremity Strength Assessment Left Impaired Shoulder 4-/5 Elbow 4-/5 Wrist 4-/5 Hand 4-/5 Lower Extremity Strength Hip 4-/5 Knee 4-/5 Sensation Assessment Sensation Gross Sensation WNL Light Touch Intact Proprioception (Position) Intact M6 PT-IP Treatment Start: 04/06/20 13:39 Freq: NEEDED Status: Active Protocol: Document 04/06/20 14:32 HH (Rec: 04/06/20 15:02 HH [id number]) Physical Therapy Treatment Exercises Exercises Ankle Pumps,Gluteal Sets Education Education Provided Precautions,Weight Bearing Status,Post-Op Packet,Safety M7 PT-IP Assessment and Plan Start: 04/06/20 13:39 Freq: NEEDED Status: Active Protocol: Document 04/07/20 13:17 CLB (Rec: 04/07/20 14:13 CLB [id number]) PT Summary Assessment and Plan Summary Impairments Pain,ROM,Strength,Balance,Bed Mobility,Transfers,Gait, Activity Tolerance Progress Towards Goals Slow Progress due to Pain,Slow Progress due to Activity Tolerance Assessment Summary Pt unable to increase gait distance due to pain. Pt requiring Min-Mod A for bed mobilty and Min A for sit- stand. Pt requires verbal cues to stay inside walker and proper walker management during gait and CGA. Pt and will benefit from another session for CG training. Pt may need FWW at d /c. Goals Bed Mobility Goal Contact Guard Assistance Transfer Goal Contact Guard Assistance,Front Wheeled Walker,Four Wheeled Walker Gait Goal Contact Guard Assistance,Front Wheel Walker,Four Wheel Walker Gait Distance 100 Other Goals FWW/ 4WW for mobility Days to Meet Goals 3 Frequency of Treatment Frequency Of Treatment Twice a Day Treatment Plan Physical Therapy Treatment Plan Bed Mobility Training,Transfer Training,Gait Training, Therapeutic Exercise,Balance Retraining,Post Op Education, Discharge Planning,Hot or Cold Pack,Neuromuscular Re-ed Other Recommendations and Next Treatment precautions, bed mobility, CG Focus training with . Recommendations To Nursing Amount of Assist Needed 1 Person Assist Discharge Recommendations PT Discharge Recommendations Home with Assistance,Home Health Equipment Needed for Home Before FWW Discharge Transportation Needs at Discharge Private Vehicle
--- NOTE | 2020-04-07 14:14 | PT.IPTN ---
Current Diagnoses Spondylolisthesis, lumbar region (04/06/20) Spinal stenosis, lumbar region with neurogenic claudication (04/06/20) Surgery Performed Operation Date: 04/06/20 07:45 Actual Procedures p L4-5 TLIF - Miguel Candelario MD Physical Therapy Treatment Note M2 PT-IP Current Condition Start: 04/06/20 13:39 Freq: NEEDED Status: Active Protocol: Document 04/06/20 14:32 HH (Rec: 04/06/20 15:02 HH [id number]) Physical Therapy Current Condition Current Condition Evaluation Date 04/06/20 Treatment Diagnosis L4-L5 TLIF, difficulty in walking Onset Date 04/06/20 Precautions Lumbar Precautions Log Roll,No Twisting,Limit Bending,Lifting Restriction of 10 lbs,Gait Belt above Incisional Area Weight Bearing Status Weight Bearing Status Weight Bear as Tolerated M3 PT-IP Subjective Start: 04/06/20 13:39 Freq: NEEDED Status: Active Protocol: Document 04/07/20 13:17 CLB (Rec: 04/07/20 14:13 CLB [id number]) Subjective Physical Therapy Visit Type Type Treatment Note Visit Start Time 13:27 Visit Stop Time 13:47 Total Visit Minutes 20 Notes present Number of PARTNER MANAGER Visits 2 Physical Therapy Visit Comments Patient Comments Pt agreeable to participate with therapy. Therapy Pain Assessment Pain When Pain Assessed During Mobility Pain Present Pain Present Pain Reported Location Back Intensity 3 Scale Used Numeric (0 - 10) Pain Behaviors Facial Grimacing,Guarding, Holding Area,Restlessness, Wincing Pain Management Techniques Timing of Activity with Medications M4 PT-IP Mobility and Gait Start: 04/06/20 13:39 Freq: NEEDED Status: Active Protocol: Document 04/07/20 13:17 CLB (Rec: 04/07/20 14:13 CLB [id number]) PT-Bed Mobility Assessment Rolling Type of Rolling Log Rolling,Roll to Right Supine to Sit Supine to Sit Minimal Assistance,1 Person Assistance Sit to Supine Sit to Supine Moderate Assistance,1 Person Assistance Scooting Scooting to Edge of Bed Contact Guard Assistance PT-Transfer Assessment Sit to and From Stand Sit to and from Stand Minimal Assistance,Use of Upper Extremities Equipment Transfer Assistive Device Gait Belt,Front Wheeled Walker Orthotic/Prosthetic Devices or Brace: No Transfers Transfer Destination Bed Transfer Technique Stand Step Pivot Transfer Ability Level of Assist Minimal Assistance,Use of Upper Extremities Comments Mobility Comments Pt in bed and agreeable to get out of bed to ambulate. Pt requiring step by step instructions and cues for sequencing LR and Min A supine to sit. Pt was able to scoot to EOB CGA. Pt stood requiring Min A. Pt ambulated ~25ft CGA with max cues for posture and staying inside walker. Pt requiring cues for sequencing stand pivot with walker management until safely in front of bed. Pt sat CGA then required Mod A for reverse LR and assist with LE's onto bed and cues for keeping back from twisting. Pt with increased pain in supine was left in bed in sidelying on right side with pillow between legs and one behind pt. present and all needs within reach. Gait Assessment Gait Gait Assistance Required: Contact Guard Assist,1 Person Assist Distance (Feet) 25 Able to Maintain Weight Bearing Status Yes During Gait Assistive Devices Assistive Device Gait Belt,Front Wheeled Walker Gait Deviations General Gait Pattern Antalgic,Decreased Stride Length,Decreased Feet Clearance,Flexed Trunk,Narrow Based Gait Factors Limiting Gait Function Factors Limiting Gait Function Decreased Activity Tolerance, Decreased Strength,Difficulty Following Directions,Limited Range of Motion,Pain,Poor Balance,Poor Safety Awareness Comments Gait Comments Due to pain in right buttocks and upper thigh pt unable to increase gait distance. Stair Climbing Assessment Comments Stair Climbing Comments pt has a ramp at home M5 PT-IP Objective Assessments Start: 04/06/20 13:39 Freq: NEEDED Status: Active Protocol: Document 04/06/20 14:32 (Rec: 04/06/20 15:02 [id number]) Orientation Orientation/Cognition Level of Alertness Alert Orientation Name,Age,Birthday,Month,Date, Year,Day of Week,Place, Situation Language Function Ability No Deficits Noted Safety Awareness Decreased Safety Awareness Memory Description Short Term Impaired Gross Range of Motion Upper Extremity ROM Assessment Within Functional Limits Lower Extremity ROM Assessment Within Functional Limits Strength Upper Extremity Strength Assessment Left Impaired Shoulder 4-/5 Elbow 4-/5 Wrist 4-/5 Hand 4-/5 Lower Extremity Strength Hip 4-/5 Knee 4-/5 Sensation Assessment Sensation Gross Sensation WNL Light Touch Intact Proprioception (Position) Intact M6 PT-IP Treatment Start: 04/06/20 13:39 Freq: NEEDED Status: Active Protocol: Document 04/06/20 14:32 HH (Rec: 04/06/20 15:02 HH [id number]) Physical Therapy Treatment Exercises Exercises Ankle Pumps,Gluteal Sets Education Education Provided Precautions,Weight Bearing Status,Post-Op Packet,Safety M7 PT-IP Assessment and Plan Start: 04/06/20 13:39 Freq: NEEDED Status: Active Protocol: Document 04/07/20 13:17 CLB (Rec: 04/07/20 14:13 CLB [id number]) PT Summary Assessment and Plan Summary Impairments Pain,ROM,Strength,Balance,Bed Mobility,Transfers,Gait, Activity Tolerance Progress Towards Goals Slow Progress due to Pain,Slow Progress due to Activity Tolerance Assessment Summary Pt unable to increase gait distance due to pain. Pt requiring Min-Mod A for bed mobilty and Min A for sit- stand. Pt requires verbal cues to stay inside walker and proper walker management during gait and CGA. Pt and will benefit from another session for CG training. Pt may need FWW at d /c. Goals Bed Mobility Goal Contact Guard Assistance Transfer Goal Contact Guard Assistance,Front Wheeled Walker,Four Wheeled Walker Gait Goal Contact Guard Assistance,Front Wheel Walker,Four Wheel Walker Gait Distance 100 Other Goals FWW/ 4WW for mobility Days to Meet Goals 3 Frequency of Treatment Frequency Of Treatment Twice a Day Treatment Plan Physical Therapy Treatment Plan Bed Mobility Training,Transfer Training,Gait Training, Therapeutic Exercise,Balance Retraining,Post Op Education, Discharge Planning,Hot or Cold Pack,Neuromuscular Re-ed Other Recommendations and Next Treatment precautions, bed mobility, CG Focus training with . Recommendations To Nursing Amount of Assist Needed 1 Person Assist Discharge Recommendations PT Discharge Recommendations Home with Assistance,Home Health Equipment Needed for Home Before FWW Discharge Transportation Needs at Discharge Private Vehicle
[2020-04-07 15:55] VITALS: BP 107/81; PULSE 112; RESP 18; TEMP 36.8; O2SAT 97
[2020-04-07 20:45] VITALS: BP 117/77; PULSE 111; RESP 14; TEMP 36.6; O2SAT 99
[2020-04-07] MEDS: SENNOSIDES 8.6 MG TABLET 17.2 MG PO (21:46)
--- NOTE | 2020-04-07 22:32 | PC.NURSE ---
Addendum entered by Jnoah Hardy R.N. 04/07/20 22:37: Patient cover site dressing/clean/dry/intact. Original Note: Patient pain 4-5/10, 10mg Oxycodone PRN Q3. Patient ambulating w/ in the room 1 person standby w/ FWW.
[2020-04-07 23:00] VITALS: BP 93/63; PULSE 116; RESP 16; TEMP 37.1; O2SAT 99
[2020-04-08] MEDS: OXYCODONE IR 5 MG TABLET 10 MG PO ×3 (02:36→08:39)
[2020-04-08] MEDS: hydrOXYzine pamoate 25 MG CAPSULE PO (02:37)
[2020-04-08 05:47] VITALS: BP 112/68; PULSE 68; RESP 18; TEMP 36.7; O2SAT 97
--- NOTE | 2020-04-08 07:55 | PM.DS.1 ---
History of Present Illness History of Present Illness Date Patient Seen: 04/08/20 Time Patient Seen: 07:55 Chief complaint: Translaminar Interbody Fusion/Laminotomy*OPB* Narrative: Please see HPI previously recorded in the chart. Discharge Providers Provider Date of admission: 04/07/20 16:51 Discharge Date: 04/08/20 Primary care physician: Jesi Davis PA-C Consults: 04/06/20 11:23 Consult to Occupational Therapy Evaluate & Treat Comment: Physician Instructions: Evaluate and treat Consult to Physical Therapy Evaluate & Treat Comment: Physician Instructions: Evaluate and Treat Discharge provider: Lesly Farah PA-C Summary Hospital Course Discharge Diagnosis: s/p lumbar TLIF Hospital Course: Patient has been having chronic back pain and worsening lumbar radiculopathy and neurogenic claudication. Patient failed multiple conservative management with worsening pain weakness and numbness in her lower extremity. Patient has been having difficulty performing activity of daily living. After discussing risks benefits of treatment options, patient elected proceed with surgery. Patient was taken to the operating room where she underwent an L4-[address] Candelario which she tolerated well. She has been recovering slowly but steadily due to her history of MS. She mobilized with PT about the room on POD#1 and continued to progress on POD#2. She has been voiding appropriately. Pain has been reasonably controlled with Oxycodone and Vistaril which she will be discharged with. 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 She is stable for discharge to home later today pending final PT eval. Status at Discharge Cognitive/behavioral status at discharge: oriented Functional status at discharge: uses cane/walker Overall status at discharge: patient is progressing back to baseline Exam Vital Signs (past 8 hours): - 04/08/20 05:47 Temperature 98.0 F Pulse Rate 68 Respiratory Rate 18 Blood Pressure 112/68 Pulse Oximetry 97 Oxygen Delivery Method Room Air Oxygen Flow Rate 0 Narrative Exam Narrative: 54 year old female resting in chair. AAO x3. Dressing in place over lumbar spine is CDI, small area of drainage on the left. 5/5 BLE. Calves soft bilaterally. Discharge Plan Discharge Plan Patient Disposition: Home Discharge comment: discharge to home after cleared by PT Discharge orders & Medications Prescriptions: New acetaminophen 325 mg Tablet 650 mg PO Q6HR PRN (Reason: Pain, Mild (1-3)) Qty: 20 RF: 0 docusate sodium [DOK] 100 mg Capsule 100 mg PO BID Qty: 20 RF: 0 hydroxyzine pamoate 25 mg Capsule 25 mg PO Q6-8H PRN (Reason: Nausea And Vomiting) Qty: 30 RF: 0 oxycodone 5 mg capsule 5 mg PO Q4-6H PRN (Reason: pain) Qty: 50 RF: 0 Continued lisinopril 20 mg Tablet 20 mg PO DAILY RF: 0 sertraline 100 mg Tablet 150 mg PO DAILY RF: 0 baclofen 20 mg Tablet 20 mg PO TID RF: 0 nortriptyline 25 mg Capsule 25 mg PO TID RF: 0 pramipexole 0.125 mg Tablet 0.125 mg PO DAILY RF: 0 gabapentin 300 mg Capsule 300 mg PO TID RF: 0 Aubagio 14 mg Tablet 14 mg PO DAILY RF: 0 Discontinued ibuprofen 200 mg Capsule 800 mg PO BEDTIME RF: 0 Follow up/Referrals: Jesi Davis PA-C [Primary Care Provider] - Miguel Candelario MD [Physician] - Diet/Activity/Treatments Diet: Diet as Tolerated Activity: No bending, lifting, twisting Cold/Heat Therapy: Ice packs as needed Skin/Wound/Dressing Care Report to your healthcare provider any signs of infection, such as:: chills, fever, night sweats, increased pain, unusual drainage and unusual redness Dressing: Dressing is to remain in place until your follow up. Please call the office if this becomes saturated. Visit Report/Discharge Packet Instructions: DI for Prescription Opioid Use, DI for Transforaminal Lumbar Interbody Fusion Visit Report Forms: Patient Portal/API, Stroke Signs & Symptoms Discharge Data Primary Care Provider: Jesi Davis Attending Provider: Miguel Candelario Admit Date/Time: 04/07/20 16:51 Quality VTE Deep Vein Thrombosis/Pulmonary Embolism Present on Admission: No
[2020-04-08 07:57] VITALS: BP 124/73; PULSE 112; RESP 19; TEMP 36.9; O2SAT 97
[2020-04-08] MEDS: BACLOFEN 10 MG TABLET 20 MG PO (08:36)
[2020-04-08] MEDS: SERTRALINE 50 MG TABLET 150 MG PO (08:36)
[2020-04-08 08:37] VITALS: BP 142/73; PULSE 112
[2020-04-08] MEDS: lisinopriL 20 MG TABLET PO (08:37)
[2020-04-08] MEDS: GABAPENTIN 300 MG CAPSULE PO (08:37)
[2020-04-08] MEDS: DOCUSATE 100 MG CAPSULE PO (08:38)
[2020-04-08] MEDS: PRAMIPEXOLE 0.125 MG TABLET PO (08:40)
[2020-04-08] MEDS: NORTRIPTYLINE HCL 25 MG CAPSULE PO (08:40)
--- NOTE | 2020-04-08 09:14 | OT.IP.TRT ---
Current Diagnoses Spondylolisthesis, lumbar region (04/07/20) Spinal stenosis, lumbar region with neurogenic claudication (04/07/20) Surgery Performed Operation Date: 04/06/20 07:45 Actual Procedures p L4-5 TLIF - Miguel Candelario MD Occupational Therapy Treatment Note M2 OT-IP Current Condition Start: 04/07/20 13:41 Freq: Status: Active Protocol: Document 04/07/20 11:11 [facility] (Rec: 04/07/20 14:00 [facility] [id number]) Occupational Therapy Current Condition Current Condition Evaluation Date 04/07/20 Treatment Diagnosis Spinal Stenosis s/p L4-5 TLIF Diagnosis Onset Date 04/06/20 Post Operative Precautions Lumbar Precautions Log Roll,No Twisting,Limit Bending,Lifting Restriction of 10 lbs,Gait Belt above Incisional Area M3 OT- IP Subjective and Pain Start: 04/07/20 13:41 Freq: Status: Active Protocol: Document 04/08/20 09:51 [facility] (Rec: 04/08/20 09:59 [facility] [id number]) OT- Subjective Occupational Therapy Visit Type Type Treatment Note Visit Start Time 08:48 Visit Stop Time 09:14 Total Visit Minutes 26 Occupational Therapy Visit Comments Patient Comments Pt and present for caregiver training. Patient/Caregiver Goals To go home. OT Pain Assessment Pain When Pain Assessed During Mobility Pain Present Pain Present Pain Reported Location Back Intensity 6 Scale Used Numeric (0 - 10) M4 OT- IP ADL's Start: 04/07/20 13:41 Freq: Status: Active Protocol: Document 04/08/20 09:51 [facility] (Rec: 04/08/20 09:59 [facility] [id number]) OT [id number] Comments OT Self-Feeding Comments Not at meal time. OT ADL-Grooming Comments OT Grooming Comments Pt not wanting to perform at this time. OT ADL-Dressing General Eval Lower Body Dressing Ability Minimal Assistance,Moderate Assistance Areas Needing Assistance Pants/Shorts Comments OT Dressing Comments Assist to help sulema over her feet and assist for balance while standing so pt able to pull up pants over her hips. OT ADL-Toileting General Evaluation Toileting Ability Minimal Assistance Comments OT Toileting Comments Pt's educated to assist pt with her balance as pt pulls up her clothing. OT ADL-Bathing Comments OT Bathing Comments Pt states to do at home. M5 OT- IP IADL's Start: 04/07/20 13:41 Freq: Status: Active Protocol: Document 04/07/20 11:11 [facility] (Rec: 04/07/20 14:00 [facility] [id number]) OT-Instrumental Activities of Daily Living Home Safety Awareness Ability to Problem Solve Emergency Unable to Problem Solve Situations Medication Management Medication Management Caregiver Administers Money Management Money Management Caregiver Provides Assistance Meal Preparation Meal Preparation Caregiver Provides Assist Bottom Stainer Bottom Stainer Caregiver Provides Assist M6 OT- IP Functional Cognition Start: 04/07/20 13:41 Freq: Status: Active Protocol: Document 04/08/20 09:51 [facility] (Rec: 04/08/20 09:59 [facility] [id number]) Cognitive Factors Limiting Selfcare Function Cognitive Ability Level of Alertness Alert,Confusional State Patient Orientation Name,Place,Situation Attention Span Ability Capable of Focused Attention, Capable of Sustained Attention Ability to Follow Commands Able to Follow One Step Commands with Increased Time, Able to Follow One Step Commands with Repetition Memory Description Short Term Impaired Safety Awareness Decreased Recall of Precautions,Decreased Ability to Apply Precautions, Underestimates Need for Assistance Problem Solving Ability Needs Assist to Identify Solutions Cognitive Comments Cognitive Assessment Comments Pt needing step sby step instructions from her as she is easily distracted, not remembering to pull up her brief, vc for back precautions, vc to slow down and keep the FWW in front of her. M7 OT- IP Mobility and Balance Start: 04/07/20 13:41 Freq: Status: Active Protocol: Document 04/08/20 09:51 [facility] (Rec: 04/08/20 09:59 [facility] [id number]) OT-Transfer Assessment Sit to and From Stand Sit to and from Stand Minimal Assistance Transfers Transfer Ability Standby Assistance,Contact Guard Assistance Technique Transfer Destination Chair,Toilet Devices Transfer Assistive Devices Gait Belt,Front Wheeled Walker Comments Mobility Comments Pt's educated to give pt step by step instructions during care as pt very distracted and poor safety awareness. Pt aware how to assist pt and also cued to assist to guide the FWW at times when pt is off balanced, but to always have a hand on the pt for now. OT- Balance Assessment Sitting Balance and Reactions Static Sitting Balance Ability Normal Dynamic Sitting Balance Ability Good Standing Balance and Reactions Static Standing Balance Ability Fair M9 OT- IP Assessment and Plan Start: 04/07/20 13:41 Freq: Status: Active Protocol: Document 04/08/20 09:51 [facility] (Rec: 04/08/20 09:59 [facility] [id number]) OT Summary Assessment and Plan Potential Rehabilitation Potential Good Analytic Complexity at Evaluation Low Summary OT Impairments Balance,Functional Cognition, Functional Mobility,Dressing, Toileting,Bathing,Toilet Transfers,Shower Transfers, Activity Tolerance Progress Towards Goals Progressing Toward Goals Assessment Summary Pt's has good awareness and demonstrating good safety to be able to assist pt with all ADL and functional mobility needs. Pt looking to go home today. Goals Grooming Goal Independent Dressing Goal Independent Toileting Goal Independent Bathing Goal Independent Toilet Transfer Goal Independent Shower Transfer Goal Independent Patient/Caregiver Education Goal Demonstrate Post-Op Precautions Days to Meet Goals 9 Frequency of Treatment Frequency Of Treatment Once a Day Treatment Plan OT Treatment Plan ADL Training,Functional Cognition Training,Functional Mobility,Patient/Family Education,Discharge Planning Discharge Recommendations OT Discharge Recommendations Home with 13/02 Assist Other Discharge Recommendations Assist during waking hours. Home Equipment Needs [facility] Transportation Needs at Discharge Private Vehicle
--- NOTE | 2020-04-08 09:57 | PT.IPTN ---
Current Diagnoses Spondylolisthesis, lumbar region (04/07/20) Spinal stenosis, lumbar region with neurogenic claudication (04/07/20) Surgery Performed Operation Date: 04/06/20 07:45 Actual Procedures p L4-5 TLIF - Miguel Candelario MD Physical Therapy Treatment Note M2 PT-IP Current Condition Start: 04/06/20 13:39 Freq: NEEDED Status: Discharge Protocol: Document 04/06/20 14:32 HH (Rec: 04/06/20 15:02 HH [id number]) Physical Therapy Current Condition Current Condition Evaluation Date 04/06/20 Treatment Diagnosis L4-L5 TLIF, difficulty in walking Onset Date 04/06/20 Precautions Lumbar Precautions Log Roll,No Twisting,Limit Bending,Lifting Restriction of 10 lbs,Gait Belt above Incisional Area Weight Bearing Status Weight Bearing Status Weight Bear as Tolerated M3 PT-IP Subjective Start: 04/06/20 13:39 Freq: NEEDED Status: Discharge Protocol: Document 04/08/20 09:07 SP (Rec: 04/08/20 16:25 SP [id number]) Subjective Physical Therapy Visit Type Type Treatment Note Visit Start Time 09:07 Visit Stop Time 09:57 Total Visit Minutes 50 Notes completed caregiver training and provided physical assist needed throughout treatment. Number of COMMUNITY SERVICE OFFICER COORDINATOR Visits 3 Physical Therapy Visit Comments Patient Comments Pt agreeable to participate with therapy. Therapy Pain Assessment Pain When Pain Assessed During Mobility Pain Present Pain Present Pain Reported Location Back Intensity 6 Scale Used Numeric (0 - 10) Pain Behaviors Facial Grimacing,Restlessness, Wincing Pain Management Techniques Re-positioning,Timing of Activity with Medications M4 PT-IP Mobility and Gait Start: 04/06/20 13:39 Freq: NEEDED Status: Discharge Protocol: Document 04/08/20 09:07 SP (Rec: 04/08/20 16:25 SP [id number]) PT-Bed Mobility Assessment Rolling Type of Rolling Log Rolling,Bilateral Level of Assist Minimal Assistance,1 Person Assistance Supine to Sit Supine to Sit Minimal Assistance,1 Person Assistance Sit to Supine Sit to Supine Minimal Assistance,1 Person Assistance,Bedrails Scooting Scooting to Edge of Bed Contact Guard Assistance PT-Transfer Assessment Sit to and From Stand Sit to and from Stand Minimal Assistance,Use of Upper Extremities Equipment Transfer Assistive Device Gait Belt,Front Wheeled Walker Orthotic/Prosthetic Devices or Brace: No Transfers Transfer Destination Bed,Chair,Toilet Transfer Technique Stand Step Pivot Transfer Ability Level of Assist Contact Guard Assistance, Minimal Assistance,Use of Upper Extremities Comments Mobility Comments Pt was upright in chair when arrived, present for caregiver training, just finishing with OT tx. Pt anxious during tx requiring max cuing for safety proper hand placement pushing up from chair arms and reaching back prior to sitting, upright posture and body close to 4WW initially then provided FWW due to not safe with 4WW and lack of brake mgt after education. Pt required redirection for maintaining spinal precautions throughout mobility. Sit> stand from chair Elizabeth cued hand placement not using FWW to push from. SPT using FWW chair to bed with safety cuing for proper positioning and hand placement by carryover. Sit<> R SL<> log roll to supine x5 repetitions Min A of 1 ( ) with support at upper trunk and LEs assist to complete and stay within spinal precautions. Sit<> stand from EOB and ambulated further distance into hallway approx 60 ft total with max cuing for upright posture, body close and staying with FWW, hands maintained on FWW handles and not front of FWW for safety. Pt required 2 stopped brief stand rests due to decreased activity tolerance and strength. When returned to room pt required SPT usign FWW with max cuing for body postioning and back up to sit with reaching prior to sitting on EOB before walking further to chair. Pt was ableto walk L EOB to chair and SPT with slow descent into chair provided Min A by . After 10 min rest pt required use of bathroom, assisted Elizabeth throughout, including pants mgt, able to complete pericare herself in sitting. Pt had call light and all needs in reach before left. Pt is able to return home with to assist 13/02, recommending HHPT to assist improve strength toward functional independence when medically stable. COMMUNITY SERVICE OFFICER COORDINATOR recommended FWW for home and pt and family requested we dispense prior to DC. COMMUNITY SERVICE OFFICER COORDINATOR placed order for FWW and dispensed before end of tx . Gait Assessment Gait Gait Assistance Required: Contact Guard Assist,Minimum Assistance,1 Person Assist Distance (Feet) 60 Able to Maintain Weight Bearing Status Yes During Gait Assistive Devices Assistive Device Gait Belt,Front Wheeled Walker Orthotic/Prosthetic Devices or Brace: No Gait Deviations General Gait Pattern Antalgic,Decreased Stride Length,Decreased Feet Clearance,Flexed Trunk,Narrow Based Gait,Wide Based Gait Factors Limiting Gait Function Factors Limiting Gait Function Decreased Activity Tolerance, Decreased Strength,Difficulty Following Directions,Limited Range of Motion,Pain,Poor Balance,Poor Safety Awareness Comments Gait Comments See mobility comments for details. Stair Climbing Assessment Comments Stair Climbing Comments pt has a ramp at home M5 PT-IP Objective Assessments Start: 04/06/20 13:39 Freq: NEEDED Status: Discharge Protocol: Document 04/06/20 14:32 HH (Rec: 04/06/20 15:02 HH [id number]) Orientation Orientation/Cognition Level of Alertness Alert Orientation Name,Age,Birthday,Month,Date, Year,Day of Week,Place, Situation Language Function Ability No Deficits Noted Safety Awareness Decreased Safety Awareness Memory Description Short Term Impaired Gross Range of Motion Upper Extremity ROM Assessment Within Functional Limits Lower Extremity ROM Assessment Within Functional Limits Strength Upper Extremity Strength Assessment Left Impaired Shoulder 4-/5 Elbow 4-/5 Wrist 4-/5 Hand 4-/5 Lower Extremity Strength Hip 4-/5 Knee 4-/5 Sensation Assessment Sensation Gross Sensation WNL Light Touch Intact Proprioception (Position) Intact M6 PT-IP Treatment Start: 04/06/20 13:39 Freq: NEEDED Status: Discharge Protocol: Document 04/08/20 09:07 SP (Rec: 04/08/20 16:25 SP [id number]) Physical Therapy Treatment Education Education Provided Precautions,Post-Op Packet, Safety M7 PT-IP Assessment and Plan Start: 04/06/20 13:39 Freq: NEEDED Status: Discharge Protocol: Document 04/08/20 09:07 SP (Rec: 04/08/20 16:25 SP [id number]) PT Summary Assessment and Plan Summary Impairments Pain,ROM,Strength,Balance,Bed Mobility,Transfers,Gait, Activity Tolerance Progress Towards Goals Progressing Toward Goals,Slow Progress due to Pain,Slow Progress due to Activity Tolerance Assessment Summary Pt requiring Min A for bed mobilty and Min A for sit- stand, CGA- Min during gait provided by with max cues for proper safety precautions to maintain spinal precautions. Pt requires verbal cues to stay inside walker and proper walker management during gait and CGA . Pt and completed CG training. COMMUNITY SERVICE OFFICER COORDINATOR dispensed FWW for home use due to not safe with 4WW. Goals Bed Mobility Goal Contact Guard Assistance Transfer Goal Contact Guard Assistance,Front Wheeled Walker,Four Wheeled Walker Gait Goal Contact Guard Assistance,Front Wheel Walker,Four Wheel Walker Gait Distance 100 Other Goals FWW/ 4WW for mobility Days to Meet Goals 3 Frequency of Treatment Frequency Of Treatment Twice a Day Treatment Plan Physical Therapy Treatment Plan Bed Mobility Training,Transfer Training,Gait Training, Therapeutic Exercise,Balance Retraining,Post Op Education, Discharge Planning,Hot or Cold Pack,Neuromuscular Re-ed Other Recommendations and Next Treatment precautions, bed mobility, Focus transfers, distance gait w/FWW Recommendations To Nursing Amount of Assist Needed 1 Person Assist Discharge Recommendations PT Discharge Recommendations Home with 13/02 Assist,Home Health Transportation Needs at Discharge Private Vehicle
--- NOTE | 2020-04-08 10:17 | PC.NURSE ---
Patient educated about all discharge instruction including SS/ of infection, post op activity (bending and lifting), diet, prescriptions for home, (oxycodone paper prescription handed to patient and ). Patient educated about falls and s/s of stroke. Patient and verbalized understanding of instructions. Patient went to private vehicle via wheelchair and home w/ .
== END 2020-04-08 10:21 | disposition home or self-care (01) ==
LOC: OR 04-08 07:06 → AC 04-08 07:06
PROVIDERS: Admitting Provider Orthopaedic Surgery Orthopaedic Surgery of the Spine; PCP Physician Assistant; Referring Provider Orthopaedic Surgery Orthopaedic Surgery of the Spine; Visit Provider Orthopaedic Surgery Orthopaedic Surgery of the Spine
PROC: (CPT 22633; principal; 2020-04-06 07:45)
DX: M48.062 Spinal stenosis, lumbar region with neurogenic claudication (principal); M43.16 Spondylolisthesis, lumbar region; I10 Essential (primary) hypertension; G25.81 Restless legs syndrome
CPT/HCPCS: 22633; 63047; 22853; 22840; 20939; 72100; 76000; 97116; 97161; 97165; 97530; 97535; C1776; G0378; C9290; J0330; J0690; J1100; J1170; J2250; J2405; J2704; J3010